=== PATIENT | female | born 2005 | race Two or more races ===

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

== ENCOUNTER 2024-03-18 18:16 | Emergency (ER) | payer OTHER ==
[~2024-03-18] VITALS: Ht 154.9 cm; Wt 56.7 kg
[2024-03-18 18:54] VITALS: BP 147/113; TEMP 98.3
[2024-03-18 20:13] VITALS: O2SAT 98
== END 2024-03-18 20:14 | disposition home or self-care (01) ==
LOC: ER 18:18
DX: M79.642 Pain in left hand (principal); V49.88XA Car occupant (driver) (passenger) injured in other specified transport accidents, initial encounter; Y93.89 Activity, other specified; Y92.89 Other specified places as the place of occurrence of the external cause; Y99.8 Other external cause status
CPT/HCPCS: 73130-TC

== ENCOUNTER 2024-05-14 23:28 | Emergency (ER) | payer OTHER | END 2024-05-15 02:11 | disposition left against medical advice (07) | LOC: ER 23:31 | DX: R07.9 Chest pain, unspecified (principal); R11.0 Nausea; R51.9 Headache, unspecified; Z53.21 Procedure and treatment not carried out due to patient leaving prior to being seen by health care provider ==